=== PATIENT | female | born 1970 ===

== ENCOUNTER 2024-01-18 09:24 | Emergency (ER) | payer BC, MEDICAID ==
[~2024-01-18] VITALS: Ht 162.6 cm; Wt 54.2 kg
[2024-01-18 09:42] VITALS: O2SAT 100
[2024-01-18 10:34] LABS: BASOPHILS % 0.4 % (0.0-2.0); EOSINOPHILS % 0.3 % (0.0-5.0); HEMATOCRIT. 36.6 % (36.0-48.0); HEMOGLOBIN. 12.3 g/dL (12.0-16.0); LYMPHOCYTES % 12.1 % (20.0-50.0); MEAN CORPUSCULAR HGB CONC 33.6 g/dL (31.0-37.0); MEAN CORPUSCULAR VOLUME 95.3 fL (81.0-99.0); MEAN PLATELET VOLUME 7.9 fl (7.4-10.4); MONOCYTES % 3.6 % (2.0-8.0); NEUTROPHILS % 83.6 % (40.0-76.0); PLATELET 275 x1000/uL (130-400); RED BLOOD CELL COUNT 3.83 mill/uL (4.2-5.4); RED CELL DISTRIBUTION WIDTH 13.2 % (11.6-14.6); WHITE BLOOD COUNT 7.4 x1000/uL (4.5-11.0)
[2024-01-18 10:53] LABS: HCG SCREEN NEGATIVE
[2024-01-18 10:59] LABS: ALANINE AMINOTRANSFERASE 14 IU/L (10-49); ALBUMIN 4.2 g/dL (3.2-4.8); ASPARTATE AMINOTRANSFERASE 28 IU/L (<34); BILIRUBIN TOTAL 0.9 mg/dL (0.1-1.0); CALCIUM 8.8 mg/dL (8.7-10.4); CARBON DIOXIDE 28 mEq/L (21-32); CHLORIDE 105 mEq/L (98-107); CREATININE 0.8 mg/dL (0.6-1.0); GLUCOSE 108 mg/dL (70-105); POTASSIUM 3.7 mEq/L (3.5-5.1); PROTEIN TOTAL 7.1 g/dL (6.0-8.3); SODIUM 140 mEq/L (136-145); UREA NITROGEN BLOOD 8 mg/dL (9-23)
[2024-01-18 11:12] LABS: TROPONIN I HIGH SENSITIVITY < 4 ng/L (3.0-34)
[2024-01-18] MEDS ORDERED: ONDANSETRON 4MG ODT PO ONE (11:15)
[2024-01-18] MEDS ORDERED: HYDROCODONE/ACETAMINOPHEN 5/325MG TABLET PO ONE (11:15)
[2024-01-18] MEDS: HYDROCODONE/ACETAMINOPHEN 5/325MG TABLET PO NR (12:58)
[2024-01-18] MEDS: ONDANSETRON 4MG ODT PO NR (12:58)
[2024-01-18 13:12] LABS: TROPONIN I HIGH SENSITIVITY < 4 ng/L (3.0-34)
[2024-01-18] MEDS ORDERED: IBUP-2029 MT (16:14)
[2024-01-18] MEDS ORDERED: SODIUM CHLORIDE 0.9% 1,000 ML IV ONE (16:15)
[2024-01-18] MEDS: KETOROLAC 30MG/ML VIAL IV STA (16:15)
[2024-01-18 22:10] VITALS: BP 126/74; PULSE 86; RESP 14; TEMP 97.3
== END 2024-01-18 22:10 | disposition home or self-care (01) ==
LOC: ER 09:24
DX: R07.89 Other chest pain (principal)
CPT/HCPCS: 99285; 93970; 96374; 71275; 71045; 80053; 84703; 83880; 83690; 85025; 85379; 84484; 36415; 93005; Q0162; J1885; J7030